=== PATIENT | female | born 1965 | race Caucasian/White ===

== ENCOUNTER 2017-03-27 15:35 | Emergency (ER) | payer BC, OTHER ==
[2017-03-27 16:03] VITALS: BP 140/96
[2017-03-27] MEDS ORDERED: LORazepam 0.5 MG TABLET PO STA (16:26)
--- NOTE | 2017-03-27 16:29 | ED Physician Documentation ---
History of Present Illness - Stated complaint Stated Complaint: MHE - Chief complaint Chief Complaint: MHE - History obtained from History obtained from: Patient - History of Present Illness Timing: Other (51-year-old woman whose been having some troubles at work with her boss and because of that feels like she is having a mental breakdown, she has been very nervous. There is no thoughts of suicidality or homicidality.) Review of Systems Constitutional: denies: Fever, Chills Cardiac: denies: Chest pain / pressure, Palpitations Respiratory: denies: Dyspnea, Cough GI: denies: Abdominal Pain PD PAST MEDICAL HISTORY - Past Medical History Past Medical History: No - Past Surgical History Past Surgical History: Yes Ortho: ACL reconstruction /[employer]: Tubal ligation, Hysterectomy - Present Medications Home Medications: Ambulatory Orders Medication Instructions Recorded Confirmed Cetirizine [ZyrTEC] 03/27/17 Fluticasone [Flonase] 03/27/17 Lorazepam [Ativan] 1 mg PO TID PRN #15 tablet 03/27/17 - Allergies Allergies/Adverse Reactions: Allergies Allergy/AdvReac Type Severity Reaction Status Date / Time codeine Allergy Nausea Verified 03/27/17 16:03 hydromorphone [From Dilaudid] Allergy Unknown Verified 03/27/17 16:03 oxycodone Allergy Unknown Verified 03/27/17 16:03 Penicillins Allergy Anaphylaxis Verified 03/27/17 16:04 - Social History Does the pt smoke?: Yes Smoking Status: Current every day smoker Does the pt drink ETOH?: Yes PD ED PE NORMAL - Vitals Vital signs reviewed: Yes - General General: Alert and oriented X 3 (Intermittently tearful) - HEENT HEENT: PERRL, EOMI - Neck Neck: Supple, no meningeal sign, No bony TTP - Neuro Neuro: Alert and oriented X 3 Eye Opening: Spontaneous Motor: Obeys Commands Verbal: Oriented GCS Score: 15 Results - Vitals Vitals: Vital Signs - 24 hr 03/27/17 15:56 Temperature 36.6 C Heart Rate 105 H Respiratory 17 Rate Blood Pressure 140/96 H O2 Saturation 95 Oxygen O2 Source Room air PD MEDICAL DECISION MAKING - ED course ED course: 51-year-old woman with work-related anxiety, no depression, suicidal ideation, or homicidal ideation. No hallucinations. We discussed treatment options and after discussion she wanted to try some anxiolytic and needed a work note. Departure - Departure Disposition: 01 Home, Self Care Clinical Impression: Anxiety Condition: Good Record reviewed to determine appropriate education?: Yes Instructions: ED Panic Attack Prescriptions: Lorazepam [Ativan] 1 mg PO TID PRN #15 tablet PRN Reason: Anxiety Comments: Call your doctor to arrange a follow-up appointment, make the next available appointment. In the interim, return anytime if worse or if new symptoms develop. Your blood pressure was elevated today on check into the emergency department. This does not mean that you have hypertension, it is a common phenomenon to come to the emergency department and have elevated blood pressure. I recommend that you see your primary care physician within the week to have it rechecked when you are feeling better. Forms: Activity restrictions
== END 2017-03-27 16:41 | disposition home or self-care (01) ==
LOC: ED 15:35
DX: F41.9 Anxiety disorder, unspecified (principal); R03.0 Elevated blood-pressure reading, without diagnosis of hypertension; F17.200 Nicotine dependence, unspecified, uncomplicated; Z56.89 Other problems related to employment
CPT/HCPCS: 1040M; 99283; A9270